=== PATIENT | male | born 1940 | race Caucasian/White ===

== ENCOUNTER → 2021-08-02 08:10 | Outpatient (CLI) | payer MEDICARE, SELFPAY ==
[2021-08-02 09:46] LABS: Hemoglobin 14.5 g/dL (13.5-17.5); Mean Corpuscular HGB Conc 33.7 % (30-36); Mean Corpuscular Hemoglobin 34.2 PG (26-34); Mean Corpuscular Volume 101.3 fL (80-100); Platelet Count 171 X10^3/uL (150-400); Red Blood Cell Count 4.24 X10^6/uL (4.5-5.9); Red Cell Distribution Width 13.1 % (11.6-14.8); White Blood Cell Count 5.7 X10^3/uL (4.5-11.0)
[2021-08-02 10:40] LABS: Alanine Aminotransferase 62 IU/L (<50); Albumin 4.5 g/dL (3.5-5.0); Albumin Globulin Ratio 1.5 (1.0-2.8); Alkaline Phosphatase 67 U/L (38-126); Aspartate Aminotransferase 66 IU/L (17-59); BUN Creatinine Ratio 22.3 (6-22); Bilirubin Total 0.9 mg/dL (0.2-1.3); Blood Urea Nitrogen 27 mg/dL (9-20); Carbon Dioxide 28 mmol/L (22-32); Chloride 103 mmol/L (98-107); Cholesterol 179 mg/dL (140-199); Estimated Glomerular Filt Rate 57.3 mL/min (>60); Globulin 3.1 g/dL (1.7-4.1); Glucose 104 mg/dL (80-110); HDL Cholesterol 77 mg/dL (40-60); HEMOLYSIS < 15 (0-50); LDL Cholesterol Calculated 36 mg/dL (<100); Potassium 5.3 mmol/L (3.4-5.1); Sodium 140 mmol/L (137-145); Total Protein 7.6 g/dL (6.3-8.2); Triglycerides 330 mg/dL (35-150)
[2021-08-02 11:11] LABS: Prostate Specific Antigen 3.19 ng/mL (0.10-4.00)
== END ==
PROVIDERS: PCP Student in an Organized Health Care Education/Training Program; Referring Provider Student in an Organized Health Care Education/Training Program; Visit Provider Student in an Organized Health Care Education/Training Program
DX: I10 Essential (primary) hypertension (principal); R35.1 Nocturia
CPT/HCPCS: 36415; 80053; 80061; 84153; 85027

== ENCOUNTER → 2022-07-27 07:45 | Outpatient (CLI) | payer OTHER, SELFPAY ==
--- NOTE | 2022-07-27 | DI.ECHO.S_ITS ---
[facility] +---------+ [facility] +---------+ : : [address] : : : : [id number] : : : : Phone: [phone]+ Echocardiogram Report + + :Name: KATH ERICKSON Study Date: 07/27/2022 Height: 68.5 in: :[facility] ReadingLocation: Weight: 170 lb : : Gender: Male BSA: 1.9 m2 : :: 1940 Age: 82 yrs BP: 142/84 mmHg: :Reason For Study: CARDIAC MURMUR : :Ordering Physician: JOURDAN, : :RAHUL Performed By: Libia Rossi : :Referring: RAHUL SOLIMAN : + + Interpretation Summary The ejection fraction is estimated to be 55-60%. The aortic valve is severely calcified. There is mild to moderate aortic stenosis. The peak aortic velocity is 2.7 m/sec. Procedure: A two-dimensional transthoracic echocardiogram with color flow and Doppler was performed. The study quality was technically difficult. There is no prior echocardiogram noted for this patient. The patient was in sinus rhythm with heart rates between 59-65 bpm during the exam. Left Ventricle: The left ventricular cavity is small. There is mild concentric left ventricular hypertrophy. The ejection fraction is estimated to be 55-60%. Left ventricular wall motion is normal. Right Ventricle: The right ventricle is at the upper limits of normal in size. The right ventricular systolic function is normal. Atria: The left atrial size is normal. Right atrial size is normal. There is no Doppler evidence for an interatrial shunt. Mitral Valve: The mitral valve leaflets appear mildly thickened, but open well. There is mild to moderate mitral annular calcification. The mitral valve mean gradient is 2096 mmHg. There is trace mitral regurgitation. Aortic Valve: The aortic valve is severely calcified. The peak aortic velocity is 2.7 m/sec. The aortic valve mean gradient is 17 mmHg. The calculated aortic valve area is 1.5 cm2. There is mild to moderate aortic stenosis. No aortic regurgitation is present. Tricuspid Valve: The tricuspid valve is normal in structure and function. There is trace tricuspid regurgitation. The right ventricular systolic pressure is estimated to be at least 18 mmHg based on an estimated right atrial pressure of 3 mm Hg. Pulmonic Valve: The pulmonic valve leaflets are thin and pliable; valve motion is normal. There is no pulmonic valvular regurgitation. Great Vessels: The aortic root is normal size. The dimensions of the ascending aorta are normal. The IVC is of normal diameter and collapses greater than 50% with a sniff. This suggests a low right atrial pressure of 3 mm Hg. Pericardium/ Pleura There is no pericardial effusion. There is no pleural effusion. MMode/2D Measurements & Calculations LVIDd: 3.4 cm LVOT diam: 2.1 cm LVIDs: 2.2 cm Ao root diam: 3.9 cm FS: 34.2 % asc Aorta Diam: 3.5 cm IVSd: 1.2 cm Ao Arch Diam (Prox Trans): 3.0 cm LVPWd: 1.1 cm LV soto. diameter/BSA (cm/m^2): 1.8 LV sys. diameter/BSA (cm/m^2): 1.2 LA A2 area: 20.8 cm2 RA long axis: 5.8 cm LA A4 area: 20.0 cm2 RA area: 13.4 cm2 LA length (vol): 5.7 cm RA vol: 26.4 ml LA vol: 61.9 ml RA : 13.7 ml/m2 LA vol index: 32.3 ml/m2 IVC diam: 1.2 cm RVD1 (basal): 4.1 cm RVD2 (mid): 3.3 cm TAPSE: 1.7 cm Doppler Measurements & Calculations Ao V2 max: 272.4 cm/sec LVOT Max Papo: 112.2 cm/sec Ao V2 mean: 185.0 cm/sec LV V1 max P.0 mmHg Ao max P.1 mmHg LV V1 VTI: 24.4 cm Ao mean P.6 mmHg ARUN(I,D): 1.6 cm2 Ao V2 VTI: 54.2 cm ARUN(V,D): 1.5 cm2 sev ratio: 0.45 ARUN indexed to BSA (cm^2/m^2): 0.84 MV E max papo: 87.2 cm/sec TR max papo: 192.6 cm/sec MV A max papo: 150.2 cm/sec TR max P.8 mmHg MV E/A: 0.58 PA V2 max: 107.3 cm/sec Med Peak E' Papo: 5.4 cm/sec PA V2 mean: 68.5 cm/sec E/E' med: 16.1 PA mean P.2 mmHg Lat Peak E' Papo: 6.0 cm/sec PA pr(Accel): 24.2 mmHg E/E' lat: 14.4 E/e' average: 15.3 MV dec time: 0.46 sec MVA(VTI): 1.9 cm2 MV V2 mean: 80.9 cm/sec SV(LVOT): 86.9 ml MV mean P.0 mmHg MV V2 VTI: 46.8 cm Reading Physician:12:[id number] PM
== END ==
PROVIDERS: PCP Student in an Organized Health Care Education/Training Program; Referring Provider Student in an Organized Health Care Education/Training Program; Visit Provider Student in an Organized Health Care Education/Training Program
DX: R01.1 Cardiac murmur, unspecified (principal); I08.0 Rheumatic disorders of both mitral and aortic valves
CPT/HCPCS: 93306

== ENCOUNTER → 2023-02-10 13:51 | Outpatient (CLI) | payer OTHER, SELFPAY ==
[2023-02-10 16:05] LABS: Creatinine Urine Random 172.9 mg/dL
[2023-02-10 16:45] LABS: Microalbumi Creatinin Ratio Ur 189.1 ug/mg CR (<30); Microalbumin Urine Random 32.7 mg/dL (0-1.6)
== END ==
PROVIDERS: PCP Student in an Organized Health Care Education/Training Program; Referring Provider Internal Medicine Nephrology; Visit Provider Internal Medicine Nephrology
DX: N18.32 Chronic kidney disease, stage 3b (principal)
CPT/HCPCS: 82043; 82570

== ENCOUNTER → 2024-09-12 10:27 | Outpatient (CLI) | payer MEDICARE, SELFPAY ==
[2024-09-12 11:47] LABS: Alanine Aminotransferase 37 IU/L (<50); Albumin 3.9 g/dL (3.5-5.0); Albumin Globulin Ratio 1.2 (1.0-2.8); Alkaline Phosphatase 74 U/L (38-126); Aspartate Aminotransferase 41 IU/L (17-59); BUN Creatinine Ratio 18.8 (6-22); Bilirubin Total 0.7 mg/dL (0.2-1.3); Blood Urea Nitrogen 29 mg/dL (9-20); Calcium 10.1 mg/dL (8.4-10.2); Carbon Dioxide 25 mmol/L (22-32); Chloride 103 mmol/L (98-107); Estimated Glomerular Filt Rate 44 mL/min (>60); Globulin 3.3 g/dL (1.7-4.1); Glucose 154 mg/dL (80-110); HEMOLYSIS < 15 (0-50); Potassium 4.7 mmol/L (3.4-5.1); Sodium 135 mmol/L (137-145); Total Protein 7.2 g/dL (6.3-8.2)
== END ==
LOC: LAB 10:29
PROVIDERS: PCP Nurse Practitioner Family; Referring Provider Nurse Practitioner Family; Visit Provider Nurse Practitioner Family
DX: K92.1 Melena (principal); D64.9 Anemia, unspecified; N18.31 Chronic kidney disease, stage 3a
CPT/HCPCS: 36415; 80053; 85045

== ENCOUNTER → 2024-09-14 13:17 | Outpatient (CLI) | payer MEDICARE, SELFPAY ==
[2024-09-14 15:04] LABS: Hematocrit 28.1 % (41-53); Hemoglobin 9.6 g/dL (13.5-17.5)
== END ==
PROVIDERS: PCP Nurse Practitioner Family; Referring Provider Nurse Practitioner Family; Visit Provider Nurse Practitioner Family
DX: K92.1 Melena (principal)
CPT/HCPCS: 36415; 85014; 85018

== ENCOUNTER → 2024-11-16 10:13 | Outpatient (CLI) | payer MEDICARE, SELFPAY ==
--- NOTE | 2024-11-16 10:17 | DI.RAD.S_ITS ---
PROCEDURE: XR SHOULDER RT MIN 2V INDICATIONS: PAIN IN SHOULDERS TECHNIQUE: < three views of the right shoulder were acquired. COMPARISON: None. FINDINGS: Bones: There are no osseous abnormalities. Acromioclavicular and glenohumeral joints: Both joints show mild degeneration. Soft tissues: No soft tissue swelling, calcification or mass. Right IJ Port-A-Cath tip overlies the SVC right atrial junction IMPRESSION: Mild degeneration Dictated by: Antonio Morrison M.D. on 11/16/2024 at 12:12 Approved by: Antonio Morrison M.D. on 11/16/2024 at 12:13
--- NOTE | 2024-11-16 10:17 | DI.RAD.S_ITS ---
PROCEDURE: XR SHOULDER LT MIN 2V INDICATIONS: PAIN IN SHOULDERS TECHNIQUE: Three views of the left shoulder were acquired. COMPARISON: None. FINDINGS: Bones: There are no osseous abnormalities. Acromioclavicular and glenohumeral joints: Mild degeneration both joints. Soft tissues: No soft tissue swelling, calcification or mass. IMPRESSION: Mild degeneration Dictated by: Antonio Morrison M.D. on 11/16/2024 at 12:12 Approved by: Antonio Morrison M.D. on 11/16/2024 at 12:12
== END ==
LOC: RAD 10:15
PROVIDERS: PCP Family Medicine; Referring Provider Nurse Practitioner Family; Visit Provider Nurse Practitioner Family
DX: M19.011 Primary osteoarthritis, right shoulder (principal); M19.012 Primary osteoarthritis, left shoulder; M25.511 Pain in right shoulder; M25.512 Pain in left shoulder
CPT/HCPCS: 73030